=== PATIENT | female | born 1980 | race Caucasian/White ===

== ENCOUNTER 2020-11-12 11:19 | Outpatient (CLI) | payer BC, SELFPAY ==
--- NOTE | 2020-11-16 12:23 | WPDHOLTEREM ---
Holter/Event Monitor Holter/Event Monitor Date of procedure: 11/12/20 Procedure Type: 48 hour holter monitor Indications: Palpitations Conclusion: 1. 48 hour holter monitor on 11/12/20. 2. Underlying rhythm is sinus rhythm. HR range 60-171 bpm; average HR 87 bpm. HR at 171 bpm was at 11:30 with baseline artifact which cannot rule out atrial tachycardia. 3. There are 4 premature supraventricular complexes and 8 supraventricular couplets. No supraventricular tachycardia. 4. No premature ventricular complexes. No ventricular tachycardia. 5. No sinoatrial or atrioventricular blocks. No significant pauses greater than 2 seconds. 6. Patient reports symptoms of pounding heart, chest and shoulder pain which demonstrate sinus rhythm, HR range 94-108 bpm.
== END 2020-11-12 11:20 | disposition home or self-care (01) ==
PROVIDERS: PCP Internal Medicine; Visit Provider Internal Medicine
DX: R00.2 Palpitations (principal)
CPT/HCPCS: 93225; 93226